=== PATIENT | male | born 1985 | race Caucasian/White ===

== ENCOUNTER 2016-08-24 17:47 | Emergency (ER) | payer SELFPAY ==
--- NOTE | 2016-08-24 17:53 | ER Document Report ---
ED Medical Screen (RME) - General Stated Complaint: NAUSEA Mode of Arrival: Ambulatory Information source: Patient Notes: pt reports decreased hearing, ALFREDO, n/v, and toothache. Pt has been taking tylenol over the counter for pain relief for past 2 days greater than recommended dose. - Related Data Allergies/Adverse Reactions: No Known Allergies Allergy (Verified 08/24/16 17:49) Physical Exam - General Notes: pt with decreased hearing to spoken word
[2016-08-24] MEDS ORDERED: OXYCODONE HCL IR 5 MG TABLET PO ONE (18:12)
[2016-08-24] MEDS ORDERED: PROMETHAZINE HCL 25 MG TABLET PO ONE (18:13)
[2016-08-24] MEDS ORDERED: AMOXICILLIN TR/POT CLAVULANATE 500-125 MG TAB PO ONE (18:13)
--- NOTE | 2016-08-24 18:15 | ER Document Report ---
[id number] Mode of Arrival: Ambulatory Information source: Patient Notes: 30-year-old male presents with complaints of right ear pain decreased hearing body aches nausea. Patient notes he took [id number] Tylenol/Benadryl combination multiple times a day with no improvement of his symptoms. Patient denies any neck pain neck stiffness, patient denies any altered mental status. He denies any actual dental pain but says that it hurts in the corner of his mouth right near his ear. TRAVEL OUTSIDE OF THE [place] IN LAST 30 DAYS: No - HPI Onset: Other - 2 day duration Onset/Duration: Persistent Quality of pain: Achy Severity: Moderate Pain Level: 3 Associated symptoms: Earache, Other Exacerbated by: Denies Relieved by: Denies Similar symptoms previously: No Recently seen / treated by doctor: No - Related Data Allergies/Adverse Reactions: No Known Allergies Allergy (Verified 08/24/16 17:49) Past Medical History - General Information source: Patient - Social History Smoking Status: Current Every Day Smoker Cigarette use (# per day): No Chew tobacco use (# tins/day): No Smoking Education Provided: No Frequency of alcohol use: None Drug Abuse: Marijuana Family History: Reviewed & Not Pertinent Patient has suicidal ideation: No Patient has homicidal ideation: No Review of Systems - Review of Systems Notes: REVIEW OF SYSTEMS: CONSTITUTIONAL : Denies fever, chills, or sweats. Denies recent illness. EENT: Admits to earache CARDIOVASCULAR: Denies chest pain. Denies palpitations or racing or irregular heart beat. Denies ankle edema. RESPIRATORY: Denies cough, cold, or chest congestion. Denies shortness of breath, difficulty breathing, or wheezing. GASTROINTESTINAL: Denies abdominal pain or distention. Denies nausea, vomiting , or diarrhea. Denies blood in vomitus, stools, or per rectum. Denies black, tarry stools. Denies constipation. GENITOURINARY: Denies difficulty urinating, painful urination, burning, frequency, blood in urine, or discharge. MUSCULOSKELETAL: Denies back or neck pain or stiffness. Denies joint pain or swelling. SKIN: Denies rash, lesions or sores. HEMATOLOGIC : Denies easy bruising or bleeding. LYMPHATIC: Denies swollen, enlarged glands. NEUROLOGICAL: Denies confusion or altered mental status. Denies passing out or loss of consciousness. Denies dizziness or lightheadedness. Denies headache. Denies weakness or paralysis or loss of use of either side. Denies problems with gait or speech. Denies sensory loss, numbness, or tingling. Denies seizures. PSYCHIATRIC: Denies anxiety or stress. Denies depression, suicidal ideation, or homicidal ideation. ALL OTHER SYSTEMS REVIEWED AND NEGATIVE. Dictation was performed using [employer] voice recognition software PHYSICAL EXAMINATION: GENERAL: Well-appearing, well-nourished and in no acute distress. HEAD: Atraumatic, normocephalic. EYES: Pupils equal round and reactive to light, extraocular movements intact, sclera anicteric, conjunctiva are normal. ENT: Bilateral TMs are pustular, dull decreased light reflex noted NECK: Normal range of motion, supple without lymphadenopathy LUNGS: Breath sounds clear to auscultation bilaterally and equal. No wheezes rales or rhonchi. HEART: Regular rate and rhythm without murmurs ABDOMEN: Soft, nontender, nondistended abdomen. No guarding, no rebound. No masses appreciated. Musculoskeletal: Normal range of motion, no pitting or edema. No cyanosis. NEUROLOGICAL: Cranial nerves grossly intact. Normal speech, normal gait. Normal sensory, motor exams no signs of meningeal irritation PSYCH: Normal mood, normal affect. SKIN: Warm, Dry, normal turgor, no rashes or lesions noted. Physical Exam - Vital signs Vitals: Pulse Resp BP Pulse Ox 92 16 131/104 H 98 08/24/16 17:51 08/24/16 17:51 08/24/16 17:51 08/24/16 17:51 Course - Re-evaluation Re-evalutation: 08/24/16 19:18 I had a very long discussion regarding the patient about his use of over-the- counter Tylenol, he states he only took 8 tablets which would put him at 4000 mg per day, I have instructed the patient not to take any more Tylenol products. He will be given pain control, has obvious otitis media. I have very low suspicion for any life-threatening issues. in room agrees that he took no more than 8 tablets After performing a Medical Screening Examination, I estimate there is LOW risk for ACUTE CORONARY SYNDROME, RESPIRATORY FAILURE, SEPSIS OR MENINGITIS, thus I consider the discharge disposition reasonable. The patient and I have discussed the diagnosis and risks, and we agree with discharging home with close follow- up. We also discussed returning to the Emergency Department immediately if new or worsening symptoms occur. We have discussed the symptoms which are most concerning (e.g., changing or worsening pain, trouble swallowing or breathing, neck stiffness, fever) that necessitate immediate return. - Vital Signs Vital signs: Temp Pulse Resp BP Pulse Ox 97.2 F 100 16 124/80 97 08/24/16 18:32 08/24/16 18:32 08/24/16 18:32 08/24/16 18:32 08/24/16 18:32 Discharge - Discharge Clinical Impression: Otitis media Qualifiers: Otitis media type: serous Laterality: right Chronicity: acute Recurrence: not specified as recurrent Qualified Code(s): H65.01 - Acute serous otitis media, right ear Headache Qualifiers: Headache type: unspecified Headache chronicity pattern: acute headache Intractability: not intractable Qualified Code(s): R51 - Headache Condition: Stable Disposition: HOME, SELF-CARE Instructions: Headache ([facility]) Additional Instructions: Follow up with your physician tomorrow for further care or return to the ED IMMEDIATELY if symptoms worsen or new concerns occur Prescriptions: Amox Tr/Potassium Clavulanate [Augmentin 875-125 Tablet] 1 tab PO BID 10 Days Oxycodone HCl [Oxycontin Ir 5 Mg Tablet] 1 - 2 mg PO Q4H PRN #15 tablet PRN Reason: For Pain Promethazine HCl [Phenergan 25 mg Tablet] 1 - 2 tab PO Q6H PRN #15 tablet PRN Reason:
[2016-08-24 18:49] VITALS: BP 124/80
== END 2016-08-24 18:36 | disposition home or self-care (01) ==
LOC: ER 17:47
DX: H65.01 Acute serous otitis media, right ear (principal); R51 Headache; F17.200 Nicotine dependence, unspecified, uncomplicated
CPT/HCPCS: 99282

== ENCOUNTER 2017-12-23 18:11 | Emergency (ER) | payer SELFPAY ==
[2017-12-23 18:15] VITALS: BP 122/81
[2017-12-23] MEDS ORDERED: DIPHENHYDRAMINE HCL 25 MG CAPSULE PO ONE (18:27)
--- NOTE | 2017-12-23 18:33 | ER Document Report ---
ED Skin Rash/Insect Bite/Abscs - General Chief Complaint: Insect Bite Stated Complaint: POSSIBLE SPIDER BITE Time Seen by Provider: 12/23/17 18:16 Mode of Arrival: Ambulatory Information source: Patient TRAVEL OUTSIDE OF THE [place] IN LAST 30 DAYS: No - HPI Patient complains to provider of: Possible insect bite Notes: Patient is here with complaints of possible insect or spider bite to the left forearm. He states that he did not see or feel anything bite him, but he knows that he was around some spiders and then developed an area that was itchy and red to his left forearm. He took Benadryl yesterday and states that it seemed to improve. Today the redness has returned and it is burning and itching. He denies any significant pain. No fever. No numbness, tingling, weakness. No drainage. He denies any chest pain or shortness of breath. No nausea, vomiting or diarrhea. No difficulty breathing or swallowing. No other complaints at this time. - Related Data Allergies/Adverse Reactions: No Known Allergies Allergy (Verified 08/24/16 17:49) Past Medical History - Social History Smoking Status: Current Every Day Smoker Family History: Reviewed & Not Pertinent - Immunizations Hx Diphtheria, Pertussis, Tetanus Vaccination: Yes Review of Systems - Review of Systems -: Yes All other systems reviewed and negative Physical Exam - Vital signs Vitals: Temp Pulse Resp BP Pulse Ox 97.9 F 78 15 122/81 100 12/23/17 18:14 12/23/17 18:14 12/23/17 18:14 12/23/17 18:14 12/23/17 18:14 - Notes Notes: GENERAL: alert, cooperative, nontoxic, no distress. HEAD: normocephalic, atraumatic EYES: conjunctiva pink without discharge, no external redness or swelling. EARS: no external swelling, no external redness NOSE: atraumatic, no external swelling MOUTH/THROAT: mucous membranes moist and pink NECK: soft, supple, full range of motion, no meningismus. CHEST: no distress, lungs clear and equal throughout. No wheezing, rales, rhonchi. CARDIAC: regular rate and rhythm, no murmur, normal capillary refill, normal pulses. BACK: full range of motion, no CVA tenderness. EXTREMITIES: full range of motion of all extremities. No redness, no swelling. NEURO: alert and oriented 3, no focal deficits, full range of motion of all extremities. PYSCH: appropriate mood, affect. Patient is cooperative. SKIN: pink, warm, dry, no rash. Small area consistent with possible insect bite to the ulnar aspect of the left forearm. Minimal surrounding redness. Mild swelling. No tenderness to palpation. There is no redness or swelling of the arm. No circumferential redness or swelling. Compartments are soft. No drainage. No abscess. Normal pulse and sensation. No vesicles or petechiae. Course - Re-evaluation Re-evalutation: 12/23/17 18:33 Patient is nontoxic appearing with stable vitals he is here with complaints of possible insect bite to the left forearm. This happened yesterday. He denies really feel we see anything bite him, but states that he was around some spiders. He took some Benadryl and it seemed to improve yesterday. He has taken no further Benadryl today and now the area is slightly red itchy and burning again. No signs of infection. It appears that he is having a localized allergic reaction. There is no sign of infection. The remainder of his exam is unremarkable. The patient will be given a dose of Benadryl here. He is instructed to continue taking Benadryl and I will write a prescription for hydrocortisone cream that he can apply to the area. He was instructed to apply ice to the sore area. Follow-up if it develops more pain, fever, increased redness, numbness, tingling, weakness, difficulty breathing or swallowing, or for any further concerns. The patient's emergency department workup and current diagnosis were explained to the patient and or family. Follow-up instructions were provided. Medications if prescribed were discussed. Instructions for when to return to the emergency department including specific worrisome symptoms were discussed with the patient and/or family. The patient is noted to have elevated blood pressure during today's emergency department visit. The patient was informed of this finding. The patient was instructed that this may be related to pre-hypertension and requires further evaluation with a primary care provider. The patient has no hypertensive symptoms at this time. - Vital Signs Vital signs: Temp Pulse Resp BP Pulse Ox 97.9 F 78 15 122/81 100 12/23/17 18:14 12/23/17 18:14 12/23/17 18:14 12/23/17 18:14 12/23/17 18:14 Discharge - Discharge Clinical Impression: Allergic reaction Qualifiers: Encounter type: initial encounter Qualified Code(s): T78.40XA - Allergy, unspecified, initial encounter Condition: Stable Disposition: HOME, SELF-CARE Instructions: Swollen Insect Bite or Sting ([facility]), Insect Bites ([facility]) Additional Instructions: His medications as prescribed. Continue to take Benadryl. Tylenol Motrin as needed for pain. Apply ice to sore area. Follow-up if not better in the next 3 -5 days, sooner for worsening pain, fever, redness, swelling, drainage, fever, any further concerns. Your blood pressure was elevated during today's visit. Have this rechecked with your doctor. Prescriptions: Hydrocortisone [Hydrocortisone 0.5% Cream 28.35 Gm] 1 applic TP BID #2 tube Forms: Elevated Blood Pressure, Smoking Cessation Education Referrals: [facility] [Provider Group] - Follow up as needed
== END 2017-12-23 18:44 | disposition home or self-care (01) ==
LOC: ER 18:11
DX: T78.40XA Allergy, unspecified, initial encounter (principal); S50.862A Insect bite (nonvenomous) of left forearm, initial encounter; W57.XXXA Bitten or stung by nonvenomous insect and other nonvenomous arthropods, initial encounter
CPT/HCPCS: 99281

== ENCOUNTER 2019-08-22 12:43 | Emergency (ER) | payer SELFPAY ==
[2019-08-22] MEDS ORDERED: CYCLOBENZAPRINE HCL 10 MG TABLET PO ONE (13:28)
[2019-08-22] MEDS ORDERED: KETOROLAC TROMETHAMINE 60 MG/2 ML SDV IM ONE (13:28)
--- NOTE | 2019-08-22 14:34 | RADIOLOGY REPORT (SQ) ---
EXAM DESCRIPTION: CHEST SINGLE VIEW COMPLETED DATE/TIME: 08/22/2019 1:49 pm REASON FOR STUDY: eval for pneumothorax COMPARISON: None. EXAM PARAMETERS: NUMBER OF VIEWS: One view. TECHNIQUE: Single frontal radiographic view of the chest acquired. RADIATION DOSE: NA LIMITATIONS: None. FINDINGS: LUNGS AND PLEURA: No opacities, masses or pneumothorax. No pleural effusion. MEDIASTINUM AND HILAR STRUCTURES: No masses. Contour normal. HEART AND VASCULAR STRUCTURES: Heart normal in size. Normal vasculature. BONES: No acute findings. HARDWARE: None in the chest. OTHER: No other significant finding. IMPRESSION: NO ACUTE RADIOGRAPHIC FINDING IN THE CHEST. TECHNICAL DOCUMENTATION: JOB ID: [id number] [employer]- All Rights Reserved Reading location - IP/workstation name: [email or web address]
--- NOTE | 2019-08-22 14:53 | ER Document Report ---
HPI - HPI Time Seen by Provider: 08/22/19 13:24 Pain Level: 5 Notes: Otherwise healthy 33-year-old male presenting to the emergency department with right upper back pain. He reports sudden onset pain over the right scapular area after picking up his son to place him in a car seat just prior to arrival. He denies any direct trauma to the area. Past Medical History - General Information source: Patient - Social History Smoking Status: Current Every Day Smoker Frequency of alcohol use: None Drug Abuse: None Family History: Reviewed & Not Pertinent Patient has suicidal ideation: No Patient has homicidal ideation: No - Medical History Medical History: Negative Renal/ Medical History: Denies: Hx Peritoneal Dialysis Surgical Hx: Negative - Immunizations Hx Diphtheria, Pertussis, Tetanus Vaccination: Yes Vertical Provider Document - CONSTITUTIONAL Notes: PHYSICAL EXAMINATION: GENERAL: Well-appearing, well-nourished and in no acute distress. HEAD: Atraumatic, normocephalic. EYES: Pupils equal round extraocular movements intact, conjunctiva are normal. ENT: Nares patent NECK: Normal range of motion LUNGS: No respiratory distress, lung sounds clear and equal bilaterally. Musculoskeletal: Normal range of motion, tenderness to palpation over the right scapular area, no crepitus or deformity. NEUROLOGICAL: Normal speech, normal gait. PSYCH: Normal mood, normal affect. SKIN: Warm, Dry, normal turgor, no rashes or lesions noted. - INFECTION CONTROL TRAVEL OUTSIDE OF THE [place] IN LAST 30 DAYS: No Course - Re-evaluation Re-evalutation: Chest X-Ray 08/22/19 13:27 IMPRESSION: NO ACUTE RADIOGRAPHIC FINDING IN THE CHEST. Chest x-ray was obtained to ensure that there was no spontaneous pneumothorax due to the sudden onset of pain and location. Chest x-ray unremarkable as outlined above. Likely musculoskeletal spasm/strain. Will send patient home on muscle relaxers and encourage conservative therapy. Patient and significant other are agreeable to this plan. - Vital Signs Vital signs: Temp Pulse Resp BP Pulse Ox 97.6 F 91 16 146/102 H 100 08/22/19 12:47 08/22/19 12:47 08/22/19 12:47 08/22/19 12:47 08/22/19 12:47 Discharge - Discharge Clinical Impression: Strain of thoracic back region Condition: Stable Disposition: HOME, SELF-CARE Instructions: Muscle Strain ([facility]), Warm Packs ([facility]) Additional Instructions: The x-ray was unremarkable. I believe your pain is most likely due to an acute muscle strain. Please take ibuprofen 600 mg every 6 hours. Take acetaminophen 650 mg every 4 hours. Take the muscle relaxer as prescribed. Gradually increase your activity as tolerated so that the muscles do not continue to lock up. Prescriptions: Cyclobenzaprine HCl [Flexeril 10 mg Tablet] 10 mg PO TIDP PRN #24 tab PRN Reason: Forms: Return to Work
[2019-08-22 15:26] VITALS: BP 118/73
== END 2019-08-22 15:26 | disposition home or self-care (01) ==
LOC: ER 12:43
DX: S29.012A Strain of muscle and tendon of back wall of thorax, initial encounter (principal); X50.9XXA Other and unspecified overexertion or strenuous movements or postures, initial encounter; F17.200 Nicotine dependence, unspecified, uncomplicated
CPT/HCPCS: 99283; 96372; 71045; J1885